=== PATIENT | male | born 1965 | race Caucasian/White ===

== ENCOUNTER 2024-01-19 22:22 | Emergency (ER) | payer OTHER, SELFPAY ==
[2024-01-19 22:24] VITALS: BP 169/97
--- NOTE | 2024-01-19 22:52 | ED.GENMED ---
History of Present Illness
General
Chief Complaint: Headache
Source: patient
Exam Limitations: none
Time Seen by Provider: 01/19/24 22:44
History of Present Illness
History of Present Illness:
This is a 59 year old male that comes in with c/o migraine. States that he awoke this morning with a sinus head pressure. States that this turned into a Migraine. State that there is left sided head pressure and he feels that his sinuses are closed.
State that he also saw blue dots. states that he is lightheaded when he gets up and has had nausea and vomiting. States that he did take a half of Vicodin around 2pm today. Denies any fever, chills, chest pain, SOB, abd pain, diarrhea, urinary
burning.
Past History
Past History
ED Past Medical History: Other (migraines )
ED Past Surgical History: Appendectomy and Orthopedic (Meniscus repair right knee)
Social History
Tobacco: Smoker
Alcohol: None
Personal:
Living: with family
Employment: Employed
Family History
Family History: Other
Review of Systems
Review of Systems
All Other Systems: ROS reviewed and negative except as documented in HPI and ROS
Constitutional: Reports no symptoms; Denies fever or chills
EENT: Reports no symptoms
Respiratory: Reports no symptoms; Denies cough or trouble breathing
Cardiac: Reports no symptoms; Denies chest pain
ABD/GI: Reports nausea and vomiting; Denies abdominal pain or diarrhea
: Reports no symptoms; Denies dysuria, frequency or urgency
Musculoskeletal: Reports no symptoms
Skin: Reports no symptoms
Neurological: Reports dizzy (When he gets up fast) and headache (Left sided)
Psychiatric: Reports no symptoms
Phy Exam
General Physical Exam
General Presentation: mild distress
General age: appears stated age
General Skin: warm and dry
General Habitus: normal
General Mental: alert
General Hydration: appears well hydrated
ENT Exam
ENT Exam: TM's normal, pharynx normal and neck supple
Eye Exam
Eye Exam: EOMI
Cardiovascular Exam
Cardiovascular Exam: regular rate/rhythm, no edema, no murmur and normal peripheral pulses
Pulmonary Exam
Pulmonary Exam: lungs clear, no respiratory distress, no rales, chest non tender, no crackles, no rhonchi, no wheezing and no cough
Gastrointestinal Exam
Gastrointestinal Exam: normal bowel sounds, non tender, soft, no organomegaly, no pulsatile mass and non distended
Musculoskeletal Exam
Musculoskeletal Exam: full ROM and no edema
Skin Exam
Skin Exam: normal color, warm/dry, no rash and no petechia
Psychiatric Exam
Psychiatric Exam: normal mood/affect
Course
Orders/Labs/Results
Orders:
Orders
01/19/24 22:50
0.9% Sodium Chloride 1000 ml [Nss] 1,000 ml IV BOLUS
Acetaminophen 1000MG/100Ml [Ofirmev] 1,000 mg in 100 ml IV ONCE
Acetaminophen IV Indication:: ED Narcotic Naive Pt-ONCE
Dexamethasone Sod Phosphate [Decadron] 20 mg IV NOW STA
Ketorolac [Toradol] 30 mg IV NOW STA
01/19/24 22:51
Diphenhydramine [Benadryl] 25 mg IV NOW STA
Prochlorperazine [Compazine] 5 mg IV NOW STA
01/19/24 23:15
Complete Blood Count/With Diff Urgent
Comprehensive Metabolic Panel Urgent
01/20/24 00:30
Potassium Chloride [KCl] 40 meq 0.9% Sodium Chloride 250 ml [Nss] 250 ml IV NOW
Abnormal Lab Results
01/19/24
23:15
WBC 13.0 H 10^3/uL
(4.8-10.8)
RBC 4.46 L 10^6/uL
(4.70-6.10)
MCH 31.4 H pg
(27.0-31.0)
Absolute Neuts (auto) 9.9 H 10^3/uL
(1.4-6.5)
Absolute Monos (auto) 0.9 H 10^3/uL
(0.1-0.6)
Neutrophils % 76.7 H %
(42.2-75.2)
Lymphocytes % 13.9 L %
(20.5-51.1)
Potassium 2.9 L mmol/L
(3.5-5.1)
Carbon Dioxide 32 H mmol/L
(22-30)
Glucose 114 H mg/dl
(70-99)
Total Protein 5.8 L g/dl
(6.3-8.2)
01/19/24 23:15
01/19/24 23:15
Leukocytosis, Hypokalemia, carbon dioxide slightly elevated. glucose nonfasting. Total protein slightly low.
Vital Signs
Initial and Last Documented VS:
Initial Vital Signs
Temp Pulse Resp BP Pulse Ox
97.7 F 64 16 169/97 99
01/19/24 22:24 01/19/24 22:24 01/19/24 22:24 01/19/24 22:24 01/19/24 22:24
Last Documented Vital Signs
Temp Pulse Resp BP Pulse Ox
97.7 F 68 16 144/81 97
01/19/24 22:24 01/20/24 01:00 01/19/24 23:29 01/20/24 01:00 01/20/24 01:00
MDM/Problems Addressed
Differential Diagnosis Includes:
Migraines, Sinus headache
MDM/Problems Addressed:
This is a 59 year old male that comes in with c/o left sided headache pain. States that he awoke with sinus pressure and this turned into a Migraine.
Will check labs, Give IV fluid and medicate for pain.
back into see patient. Patient states that he is feeling better. Explained that his potassium is very low. Will need to give patient IV potassium and explained that he will be here for the next 4 hours. Patient verbalized understanding. Will
discharge home on oral Potassium for 4 days.
Chronic conditions affecting care:
Migraines
Acute Exacerbation and/or Progression of Chronic Illness:
Migraines
*Pulse Oximetry
Patient hypoxic: no
*EKG
Interpreted by ED Provider?: NA
Rate: EKG- N/A
*Brick Carrier Interpretation
Rate: Brick Carrier- N/A
*Critical Care Note
Total Time (30-74mins, 75-104mins- exclusive of procedures): Not Applicable
ED Attending Note
-
Portions of this chart may have been created with voice recognition software.� Occasional wrong word or��sound alike� substitutions may have occurred due to the inherent limitations of voice recognition software.
Discharge Plan
Departure
Patient Disposition: Home (Routine Discharge)
Date of Disposition: 01/20/24
Time of Disposition: 02:53
Patient with high blood pressure during this ER visit?: Yes
Condition: Good
Covid-19: Not Applicable
Discharge Problem:
Migraine, Acute hypokalemia
Instructions: Hypokalemia, Migraines (DC), BLOOD PRESSURE
Prescriptions:
New
potassium chloride [Klor-Con] 20 mEq packet
20 meq PO DAILY Qty: 4 0RF
No Action
meloxicam 7.5 MG tablet
7.5 mg PO DAILY
multivitamin Tablet
1 tab PO DAILY
omeprazole 20 mg Tablet,Delayed Release (Dr/Ec)
20 mg PO DAILY
omega [id number]-fish oil [Fish Oil] 1,000 (120-180) mg Capsule
1 cap PO BID
Referrals:
Rakesh Curran MD [Family Provider] - Follow up in 5-7 days
Activity Restrictions/Additional Instructions:
As discussed, your blood work shows that your potassium is very low. You have been given IV potassium here and a prescription has been sent to your Pharmacy for oral potassium for the next 4 days. Please increase your water intake to 8-8oz glasses
daily. You may use Tylenol 1000mg every 6 hours for pain and alternate with Ibuprofen 600mg every 6 hours with food for headache pain. Follow up with the family doctor for recheck and for repeat labs to check your potassium. IF YOU HAVE ANY OTHER
CONCERNS OR YOU HAVE INCREASED HEADACHE, PLEASE RETURN TO THE EMERGENCY ROOM.
Interventions
Interventions:
*Risk Screen - Suicide Last Done: 01/19/24 22:24
*General Assessment Last Done: 01/19/24 23:08
*Neglect/Abuse Screening Last Done: 01/19/24 22:24
*ED COVID-19 Vaccine History Last Done: 01/19/24 23:08
ED- Neurological Assessment Last Done: 01/19/24 23:47
Discharge Date and Time
Print Language: MONGOLIAN
[2024-01-19 23:07] VITALS: BMI 20.1
[2024-01-19] MEDS: NSS 1000 IV (23:15)
[2024-01-19] MEDS: BENADRYL 25 MG IV (23:17)
[2024-01-19] MEDS: TORADOL 30 MG IV (23:21)
[2024-01-19] MEDS: COMPAZINE 5 MG IV (23:24)
[2024-01-19 23:25] LABS: % Basophils 0.3 % (0-2); % Eosinophils 2.2 % (0-6); % Immature Granulocytes 0.3 % (0-0.5); % Lymphocytes 13.9 % (20.5-51.1); % Monocytes 6.6 % (1.7-9.3); % Neutrophils 76.7 % (42.2-75.2); Absolute Eosinophils 0.3 10^3/uL (0-0.7); Absolute Lymphocytes 1.8 10^3/uL (1.2-3.4); Absolute Monocytes 0.9 10^3/uL (0.1-0.6); Absolute Neutrophils 9.9 10^3/uL (1.4-6.5); Hematocrit 41.3 % (39.0-52.0); Mean Corp Hgb Conc. 33.9 g/dL (33.0-37.0); Mean Corpuscular Hgb 31.4 pg (27.0-31.0); Mean Corpuscular Volume 92.6 fL (80.0-94.0); Mean Platelet Volume 8.8 fL (7.4-10.4); Nucleated Red Blood Cells % 0 % (-); Platelet Count 249 10^3/uL (130-400); Red Blood Cell Count 4.46 10^6/uL (4.70-6.10); Red Cell Dist. Width 13.7 % (11.5-14.5)
[2024-01-19 23:29] VITALS: BP 154/86
[2024-01-19] MEDS: DECADRON 20 MG IV (23:34)
[2024-01-19] MEDS: OFIRMEV 100 IV (23:40)
[2024-01-19 23:53] LABS: ALT (SGPT) 24 U/L (0-50); AST (SGOT) 27 U/L (17-59); Albumin 3.9 g/dl (3.5-5.0); Alkaline Phosphatase 91 U/L (38-126); Blood Urea Nitrogen 19 mg/dl (9-20); Calcium 8.5 mg/dl (8.4-10.2); Carbon Dioxide 32 mmol/L (22-30); Chloride 102 mmol/L (98-107); Estimated Creatinine Clearance 102 ml/min; Glucose 114 mg/dl (70-99); Potassium 2.9 mmol/L (3.5-5.1); Sodium 140 mmol/L (135-145); Total Bilirubin 0.3 mg/dl (0.2-1.3); Total Protein 5.8 g/dl (6.3-8.2); eGFR > 60.00
[2024-01-20] VITALS: BP 123/74
--- NOTE | 2024-01-20 00:22 | EDRN ---
Called pharmacy for [facility]
[2024-01-20] MEDS: KCL 270 MEQ IV (00:48)
[2024-01-20 01:00] VITALS: BP 144/81
[2024-01-20 03:05] VITALS: BP 137/87
[2024-01-20 04:58] VITALS: BP 140/72
== END 2024-01-20 05:07 | disposition home or self-care (01) ==
LOC: EMR 22:22
PROVIDERS: Clinical Nurse Specialist Family Health; EMERGENCY PHYSICIAN Emergency Medicine; FAMILY PHYSICIAN Family Medicine
DX: G43.909 Migraine, unspecified, not intractable, without status migrainosus (principal); E87.6 Hypokalemia; R03.0 Elevated blood-pressure reading, without diagnosis of hypertension; R42 Dizziness and giddiness; R11.2 Nausea with vomiting, unspecified; F17.200 Nicotine dependence, unspecified, uncomplicated
CPT/HCPCS: 99284; 96374; 96375 ×6; 96361 ×5; 80053; 85025

== ENCOUNTER → 2024-08-12 07:20 | Outpatient (REF) | payer OTHER, SELFPAY | LOC: RAD 07:20 | PROVIDERS: ATTENDING PHYSICIAN Family Medicine | DX: R63.4 Abnormal weight loss (principal) | CPT/HCPCS: 71260; 74177; Q9967 ==

== ENCOUNTER → 2024-08-13 08:21 | Outpatient (REF) | payer OTHER, SELFPAY | LOC: RCS 08:21 | PROVIDERS: ATTENDING PHYSICIAN Family Medicine | DX: R00.2 Palpitations (principal) | CPT/HCPCS: 93225; 93226 ==

== ENCOUNTER → 2024-08-19 12:59 | Outpatient (REF) | payer OTHER, SELFPAY | LOC: RCS 12:59 | PROVIDERS: ATTENDING PHYSICIAN Family Medicine | DX: R00.2 Palpitations (principal) | CPT/HCPCS: 93017; 93350 ==